=== PATIENT | female | born 1980 | race Caucasian/White ===

== ENCOUNTER 2018-07-28 10:11 | Day surgery (SDC) | payer OTHER | END 2018-07-28 13:50 | disposition home or self-care (01) | LOC: JASU-SURG 10:11 → JASUSAT 13:50 ==

== ENCOUNTER 2020-05-24 07:55 | Inpatient (IN) | payer OTHER ==
[2020-05-24 09:53] VITALS: BMI 27.3
[2020-05-24] MEDS ORDERED: CITRIC ACID/SODIUM CITRATE 30 ML UNIT-DOSE CUP PO ONE (10:19)
[2020-05-24] MEDS ORDERED: morphine SULFATE/Preservative Free 0.5 MG/ML (1cc Syringe) ONE (10:23)
[2020-05-24] MEDS ORDERED: ceFAZolin SODIUM 1 GM VIAL ONE (10:23)
[2020-05-24] MEDS ORDERED: DEXAMETHASONE SOD PHOSPHATE 4 MG/1 ML VIAL ONE (10:40)
[2020-05-24] MEDS ORDERED: OXYTOCIN 10 UNITS/ML VIAL ONE (10:40)
[2020-05-24] MEDS ORDERED: ONDANSETRON 4 MG/2 ML VIAL ONE (10:40)
[2020-05-24] MEDS ORDERED: PHENYLEPHRINE HCL 10 MG/1 ML SINGLE DOSE VIAL ONE (10:40)
[2020-05-24] MEDS ORDERED: OXYTOCIN 20 UNITS in 0.9% NS 20 UNIT/1,000 ML INFUS.BAG IV ONE (11:05)
[2020-05-24] MEDS ORDERED: ONDANSETRON 4 MG/2 ML VIAL IVPUSH PRN (11:42)
[2020-05-24] MEDS ORDERED: ACETAMINOPHEN 1000 MG/100 ML VIAL (NON FORMULARY) IVPB PRN ×2 (11:43→11:51)
[2020-05-24] MEDS ORDERED: IBUPROFEN 800 MG/8 ML IJ IVPB PRN ×2 (11:43→11:51)
[2020-05-24] MEDS ORDERED: SENNOSIDES/DOCUSATE COMBO (SENNA PLUS) TABLET (UD) PO PRN (11:51)
[2020-05-24] MEDS ORDERED: oxyCODONE HCL 5 MG TABLET PO PRN (11:51)
[2020-05-24] MEDS ORDERED: ONDANSETRON 4 MG/2 ML VIAL IVPB PRN (11:51)
[2020-05-24] MEDS ORDERED: OXYTOCIN 20 UNITS in 0.9% NS 20 UNIT/1,000 ML INFUS.BAG IV SCH (12:00)
[2020-05-24] MEDS: METHYLERGONOVINE MALEATE 0.2 MG TABLET (FP) PO SCH (21:44)
[2020-05-25] MEDS: METHYLERGONOVINE MALEATE 0.2 MG TABLET (FP) PO SCH ×3 (05:09→21:58)
[2020-05-25] MEDS: IBUPROFEN 600 MG TABLET (FP) PO PRN ×2 (07:35→15:02)
[2020-05-25] MEDS: ACETAMINOPHEN 325 MG TABLET (FP) PO PRN ×3 (07:36→21:49)
[2020-05-25 09:23] LABS: BASO % 0.7 % (0-2.0); EOS % 1.4 % (0-4.5); HEMATOCRIT 34.2 % (32.4-45.2); HEMOGLOBIN 11.6 GM/dL (10.7-15.3); LYMPH % 11.9 % (8-40); MCH 32.1 pg (25.7-33.7); MCHC 33.9 g/dl (32.0-36.0); MEAN CELL VOLUME 94.8 fl (80-96); MEAN PLT VOLUME 8.8 fl (7.5-11.1); MONO % 7.2 % (3.8-10.2); NEUT % 78.8 % (42.8-82.8); PLATELET COUNT 303 K/MM3 (134-434); RBC 3.61 M/mm3 (3.60-5.2); RDW 13.9 % (11.6-15.6); WHITE BLOOD COUNT 13.2 K/mm3 (4.0-10.0)
[2020-05-25] MEDS: ESCITALOPRAM OXALATE 20 MG TABLET PO SCH (11:01)
[2020-05-25] MEDS ORDERED: BISACODYL 10 MG SUPP.RECT RC PRN (11:53)
[2020-05-25] MEDS: DOCUSATE SODIUM 100 MG CAPSULE (FP) PO SCH (13:30)
[2020-05-25] MEDS: SIMETHICONE 80 MG TAB.CHEW (FP) PO PRN (21:50)
[2020-05-26] MEDS: SIMETHICONE 80 MG TAB.CHEW (FP) PO PRN ×2 (02:40→09:59)
[2020-05-26] MEDS: ACETAMINOPHEN 325 MG TABLET (FP) PO PRN ×2 (02:49→09:57)
[2020-05-26] MEDS: IBUPROFEN 600 MG TABLET (FP) PO PRN ×2 (02:50→09:58)
[2020-05-26] MEDS: METHYLERGONOVINE MALEATE 0.2 MG TABLET (FP) PO SCH (06:31)
[2020-05-26] MEDS: ESCITALOPRAM OXALATE 20 MG TABLET PO SCH (09:59)
[2020-05-26] MEDS: DOCUSATE SODIUM 100 MG CAPSULE (FP) PO SCH (09:59)
[2020-05-26 11:46] VITALS: BP 99/71; PULSE 68; TEMP 97.6
== END 2020-05-26 12:20 | disposition home or self-care (01) | DRG 788 ==
LOC: JLDR 07:55 → J3W 13:20
PROVIDERS: ADMIT Specialist; ATTEND Specialist
PROC: 10D00Z1 Extraction of Products of Conception, Low, Open Approach (ICD-10-PCS; principal; 2020-05-24)
PROC: 0JN80ZZ Release Abdomen Subcutaneous Tissue and Fascia, Open Approach (ICD-10-PCS; 2020-05-24)
DX: O44.43 Low lying placenta NOS or without hemorrhage, third trimester (principal); O34.218 Maternal care for other type scar from previous cesarean delivery; Z3A.38 38 weeks gestation of pregnancy; Z37.0 Single live birth
CPT/HCPCS: 36415; 85025; 88304-TC; 88307-TC; J0131

== ENCOUNTER 2021-03-13 06:12 | Day surgery (SDC) | payer OTHER ==
[2021-03-08 09:51] VITALS: BMI 22.1
[2021-03-13] MEDS ORDERED: GLYCOPYRROLATE 0.2 MG/1 ML VIAL ONE (07:47)
[2021-03-13] MEDS ORDERED: ROCURONIUM BROMIDE 50 MG/5 ML SYRINGE ONE (07:47)
[2021-03-13] MEDS ORDERED: PROPOFOL 20 ML ONE (07:47)
[2021-03-13] MEDS ORDERED: fentaNYL CITRATE 250 MCG/5 ML VIAL ONE (07:47)
[2021-03-13] MEDS ORDERED: MIDAZOLAM HCL 2 MG/2 ML SINGLE DOSE VIAL ONE (07:48)
[2021-03-13] MEDS ORDERED: NEOSTIGMINE METHYLSULFATE 0.5 MG/ML - 10 ML MDV ONE (07:48)
[2021-03-13] MEDS ORDERED: ONDANSETRON 4 MG/2 ML VIAL IVPUSH PRN (08:22)
[2021-03-13] MEDS ORDERED: oxyCODONE HCL 5 MG TABLET PO PRN (08:22)
[2021-03-13] MEDS ORDERED: LACTATED RINGERS SOLUTION 1,000 ML IV SCH (08:30)
[2021-03-13] MEDS ORDERED: OXYTOCIN 10 UNITS/ML VIAL ONE (08:32)
[2021-03-13] MEDS ORDERED: LIDOCAINE HCL/PF 2% SDV 5ML VIAL ONE (09:08)
[2021-03-13] MEDS ORDERED: ceFAZolin SODIUM 1 GM VIAL ONE (09:08)
[2021-03-13] MEDS ORDERED: KETOROLAC TROMETHAMINE 30 MG/1 ML VIAL ONE (09:08)
[2021-03-13] MEDS ORDERED: DEXAMETHASONE SOD PHOSPHATE 4 MG/1 ML VIAL ONE (09:08)
[2021-03-13] MEDS ORDERED: ACETAMINOPHEN INJECTION 100 ML IVPB ONE (09:14)
[2021-03-13] MEDS ORDERED: HALOPERIDOL LACTATE 5 MG/ML ONE (10:03)
[2021-03-13 11:07] VITALS: TEMP 98.4
[2021-03-13 12:02] VITALS: BP 95/65; PULSE 78
== END 2021-03-13 12:02 | disposition home or self-care (01) ==
LOC: FASU 06:12
PROVIDERS: ATTEND Specialist
PROC: 0UB74ZZ Excision of Bilateral Fallopian Tubes, Percutaneous Endoscopic Approach (ICD-10-PCS; principal; 2021-03-13 08:28)
PROC: 10A07Z6 Abortion of Products of Conception, Vacuum, Via Natural or Artificial Opening (ICD-10-PCS; 2021-03-13 08:28)
DX: O09.521 Supervision of elderly multigravida, first trimester (principal); Z3A.01 Less than 8 weeks gestation of pregnancy; O09.291 Supervision of pregnancy with other poor reproductive or obstetric history, first trimester; Z30.2 Encounter for sterilization; Z33.2 Encounter for elective termination of pregnancy
CPT/HCPCS: 81025; 86850; 86900; 86901; 88302-TC; 88305-TC; 94760; J0131